=== PATIENT | female | born 1945 | race Caucasian/White ===

== ENCOUNTER 2017-02-13 14:18 | Emergency (ER) | payer OTHER ==
[~2017-02-13] VITALS: Ht 167.6 cm; Wt 80.0 kg
[~2017-02-13 14:18] MED LIST: ALBU8I INH; CYCL-36 PO; DICL75 PO; GABA300C3 PO; PEGPOW2 PO; SYMB80AE INH; ULTR50TA PO; ZOCO40TA PO
[2017-02-13 14:20] VITALS: BP 184/83; PULSE 86; RESP 16; TEMP 98.1; O2SAT 98
[2017-02-13] MEDS ORDERED: ASPIRIN 325 MG TAB PO ONE (14:45)
[2017-02-13] MEDS ORDERED: SODIUM CHLORIDE 0.9% FLUSH 10 ML FLUSH IVF PRN (14:45)
[2017-02-13 14:52] VITALS: BP 121/73; PULSE 72; PULSE 75; RESP 16; TEMP 98.5; O2SAT 98
[2017-02-13 14:53] VITALS: BP 129/78; PULSE 73
--- NOTE | 2017-02-13 15:06 | PD ---
HPI Chief Complaint: Chest Pain Time Seen by Provider: 14:59 Travel History International Travel<30 days: No Contact w/Intl Traveler<30days: No Traveled to known affect area: No History of Present Illness HPI 71-year-old female that presents to the ED for evaluation of chest pressure and shortness of breath that she's had for some time. Per patient she has a pressure on her chest that comes and goes and she's had this from was a couple months now. Per patient she's been following with Dr. Gipson are for evaluation of this and has had a treadmill as well as a nuclear stress test that apparently have been negative. Patient also probably having a Holter monitor. Per patient the pain is not constant but comes and goes. Become severe and radiates to the back. She states that she has a history of gastroparesis as she wasn't sure if this is related to that. She's been taking a lot of Gas-X with some relief but he continues to come back. He denies any nausea or vomiting. No abdominal pain. No bowel movement issues. No urinary issues. Allergy to amoxicillin, codeine, contrast media, Ultram. She states that she tried to call Dr. Gipson's office today to see if she could be seen but she was not successful so she came here instead. Per patient the pain is 6 out of 10. It is more like a pressure than an actual pain. PFSH Past Medical History Arthritis: Yes Asthma: Yes Autoimmune Disease: No Blood Disorders: No Cancer: No Cardiovascular Problems: No High Cholesterol: Yes Chest Pain: Yes Diabetes: No Diminished Hearing: No Endocrine: No Gastrointestinal Disorders: Yes (IBS) GERD: Yes Genitourinary: No Headaches: Yes Hepatitis: No Hiatal Hernia: No Immune Disorder: No Implanted Vascular Access Dvce: Yes Kidney Stones: Yes Musculoskeletal: Yes (arthritis in neck and back , DDD) Neurologic: No (tingling in fingers in l hand) Psychiatric: No Reproductive: No Respiratory: Yes (bronchitis) Pancreatitis: Yes Pneumonia: Yes Thyroid Disease: No PNEUMOCCOCAL Vaccine (Year): 2006 ?: Not Menopausal: Yes : 4 Para: 3 Miscarriage: 1 Past Surgical History Abdominal Surgery: Yes (HYSTERECTOMY, gallbladder) AICD: No Appendectomy: Yes Body Medical Devices: rods to lower back Cholecystectomy: Yes Gynecologic Surgery: Yes Hysterectomy: Yes Joint Replacement: Yes (Left knee replaced) Neurologic Surgery: Yes (LUMBAR LAMINECTOMY 1989; LAMINECTOMY WITH FUSION 2004) Pacemaker: No Tonsillectomy: Yes Other Surgery: Yes (RIGHT SHOULDER SX, BACK L5, S1, L TOTAL KNEE) Social History Alcohol Use: Yes (OCCASSIONALLY) Tobacco Use: No (QUIT) Substance Use: No Allergies-Medications (Allergen,Severity, Reaction): Coded Allergies: Amoxicillin (Verified Allergy, Severe, Swelling, 02/13/17) Codeine (Verified Allergy, Severe, VERY SICK, 02/13/17) Contrast Media (Verified Allergy, Severe, Hives, 02/13/17) Ultracet (Verified Adverse Reaction, Severe, N/V, 02/13/17) Ultram (Verified Adverse Reaction, Severe, N/V, 02/13/17) Reported Meds & Prescriptions Reported Meds & Active Scripts Active Reported Simvastatin 40 Mg Tab 40 Mg PO HS Miralax Powder (Polyethylene Glycol 3350 Powder) 17 Gm Powd 17 Gm PO DAILY Mix and dissolve one measuring cap-ful (17 grams) in water or juice. Gabapentin 300 Mg Cap 300 Mg PO TID Diclofenac Sodium DR (Diclofenac Sodium) 75 Mg Tabdr 75 Mg PO DAILY Flexeril (Cyclobenzaprine HCl) 10 Mg Tab 10 Mg PO TID Symbicort Inh (Budesonide/Formoterol Fumarate) 80-4.5 Mcg/Act Aero 1 Puff INH DAILY Ventolin Hfa 18 GM Inh (Albuterol Sulfate) 90 Mcg/Act Aer 2 Puff INH TID Lisinopril 10 Mg Tab 10 Mg PO DAILY Review of Systems Except as stated in HPI: all other systems reviewed are Neg Physical Exam Narrative GENERAL: SKIN: Warm and dry. HEAD: Atraumatic. Normocephalic. EYES: Pupils equal and round. No scleral icterus. No injection or drainage. ENT: No nasal bleeding or discharge. Mucous membranes pink and moist. Tongue is midline. No uvula deviation. NECK: Trachea midline. No JVD. CARDIOVASCULAR: Regular rate and rhythm. No murmurs, S3, S4. Chest pain is not reproducible with touch. RESPIRATORY: No accessory muscle use. Clear to auscultation. Breath sounds equal bilaterally. GASTROINTESTINAL: Abdomen soft, non-tender, nondistended. Hepatic and splenic margins not palpable. MUSCULOSKELETAL: Extremities without clubbing, cyanosis, or edema. No obvious deformities. Full range of motion of the upper and lower extremities bilaterally. 2+ pulses bilaterally. NEUROLOGICAL: Awake and alert. No obvious cranial nerve deficits. Motor grossly within normal limits. Five out of 5 muscle strength in the arms and legs. Normal speech. PSYCHIATRIC: Appropriate mood and affect; insight and judgment normal. Data Data Last Documented VS Vital Signs Date Time Temp Pulse Resp B/P Pulse Ox O2 Delivery O2 Flow Rate FiO2 02/13/17 16:58 62 21 134/76 99 Nasal Cannula 2 02/13/17 14:52 98.5 Orders Electrocardiogram (02/13/17 14:32) Basic Metabolic Panel (Bmp) (02/13/17 14:32) Ckmb (Isoenzyme) Profile (02/13/17 14:32) Complete Blood Count With Diff (02/13/17 14:32) Magnesium (Mg) (02/13/17 14:32) Prothrombin Time / Inr (Pt) (02/13/17 14:32) Act Partial Throm Time (Ptt) (02/13/17 14:32) Troponin I (02/13/17 14:32) Chest, Single Ap (02/13/17 14:32) Ecg Monitoring (02/13/17 14:32) Bilateral Bp Monitoring (02/13/17 14:32) Iv Access Insert/Monitor (02/13/17 14:32) Oximetry (02/13/17 14:32) Oxygen Administration (02/13/17 14:32) Aspirin (Aspirin) (02/13/17 14:45) Sodium Chloride 0.9% Flush (Ns Flush) (02/13/17 14:45) D-Dimer (02/13/17 14:43) Hepatic Functional Panel (02/13/17 14:55) Lipase (02/13/17 14:55) Troponin I (02/13/17 16:41) Labs Laboratory Tests Test 02/13/17 02/13/17 14:55 18:00 White Blood Count 8.6 TH/MM3 Red Blood Count 4.39 MIL/MM3 Hemoglobin 12.5 GM/DL Hematocrit 35.7 % Mean Corpuscular Volume 81.2 FL Mean Corpuscular Hemoglobin 28.4 PG Mean Corpuscular Hemoglobin 35.0 % Concent Red Cell Distribution Width 13.2 % Platelet Count 241 TH/MM3 Mean Platelet Volume 8.9 FL Neutrophils (%) (Auto) 77.4 % Lymphocytes (%) (Auto) 13.6 % Monocytes (%) (Auto) 7.1 % Eosinophils (%) (Auto) 1.5 % Basophils (%) (Auto) 0.4 % Neutrophils # (Auto) 6.6 TH/MM3 Lymphocytes # (Auto) 1.2 TH/MM3 Monocytes # (Auto) 0.6 TH/MM3 Eosinophils # (Auto) 0.1 TH/MM3 Basophils # (Auto) 0.0 TH/MM3 CBC Comment DIFF FINAL Differential Comment Prothrombin Time 10.6 SEC Prothromb Time International 1.0 RATIO Ratio Activated Partial 24.0 SEC Thromboplast Time D-Dimer Quantitative (PE/DVT) 0.26 MG/L FEU Sodium Level 138 MEQ/L Potassium Level 4.1 MEQ/L Chloride Level 105 MEQ/L Carbon Dioxide Level 25.5 MEQ/L Anion Gap 8 MEQ/L Blood Urea Nitrogen 17 MG/DL Creatinine 0.80 MG/DL Estimat Glomerular Filtration 71 ML/MIN Rate Random Glucose 98 MG/DL Calcium Level 8.9 MG/DL Magnesium Level 2.2 MG/DL Total Bilirubin 0.4 MG/DL Direct Bilirubin 0.1 MG/DL Indirect Bilirubin 0.3 MG/DL Aspartate Amino Transf 14 U/L (AST/SGOT) Alanine Aminotransferase 20 U/L (ALT/SGPT) Alkaline Phosphatase 67 U/L Total Creatine Kinase 70 U/L Troponin I LESS THAN 0.02 LESS THAN 0.02 NG/ML NG/ML Total Protein 7.1 GM/DL Albumin 3.7 GM/DL Lipase 146 U/L MDM Medical Decision Making Medical Screen Exam Complete: Yes Emergency Medical Condition: Yes Medical Record Reviewed: Yes Interpretation(s) CBC & BMP Diagram 02/13/17 14:55 EKG shows sinus rhythm with no sign of acute ischemia or arrhythmia. Read by me and attending. Troponin is negative. CK-MB negative. Coags within normal limits with d-dimer within normal limits. Chest x-ray negative for acute disease. EKG shows sinus rhythm with no sign of acute ischemia or arrhythmia rhythm me and attending. Differential Diagnosis Chest pain versus ACS versus noncardiac chest pain versus atypical chest pain versus pneumonia versus PE versus gastroparesis Narrative Course 71-year-old female that presents to the ED for evaluation of chest pain. Patient was properly examined and was found to have signs and symptoms consistent with appears to be chest discomfort. Unclear etiology. Patient follows with Dr. Gipson and per patient she's had a treadmill stress test that was somewhat abnormal so they did an inferior stress this and per patient need seems like he was negative as nothing is has been done. At this time I recommend some labs and imaging. We will speak with Dr. Gipson once I get results. Labs and imaging were essentially unremarkable. Case was discussed with Dr. Gipson who recommends doing second troponin acted as negative patient can follow-up with his office tomorrow. Second troponin was done and this was negative. Patient was reassured. From history and physical this appears to be a typical chest pain. I question whether this is gastroparesis. I will treat patient with Reglan. Told to follow with PCP. Follow with Dr. Gipson tomorrow. My attending See ED worsening symptoms. All questions were answered to the best of my ability. Case was discussed with my attending who agrees with plan. Diagnosis Primary Impression: Atypical chest pain Patient Instructions: General Instructions Additional Instructions: Take medication as prescribed. Follow with Dr gipson tomorrow. See ED if worsening symptoms. Med/Other Pt SpecificInfo: Prescription(s) given Disposition: 01 DISCHARGE HOME Condition: Stable Odell Farooq Feb 13, 2017 15:06
[2017-02-13] MEDS ORDERED: LISI10TA3 PO ×2 (15:13→17:52)
[2017-02-13 15:27] LABS: AUTOMATED NEUTROPHIL # 6.6 TH/MM3 (1.8-7.7); BASOPHIL % 0.4 % (0.0-2.0); EOSINOPHIL # 0.1 TH/MM3 (0-0.4); EOSINOPHIL % 1.5 % (0.0-4.0); HEMATOCRIT 35.7 % (35.0-46.0); HEMO FLAGS DIFF FINAL; LYMPH % 13.6 % (9.0-44.0); LYMPHOCYTE # 1.2 TH/MM3 (1.0-4.8); MEAN CELL VOLUME 81.2 FL (80.0-100.0); MEAN CORPUSCULAR HEMOGLOBIN 28.4 PG (27.0-34.0); MONO % 7.1 % (0.0-8.0); NEUT % 77.4 % (16.0-70.0); PLATELET COUNT 241 TH/MM3 (150-450); RED BLOOD COUNT 4.39 MIL/MM3 (4.00-5.30); RED CELL DISTRIBUTION WIDTH 13.2 % (11.6-17.2); WHITE BLOOD COUNT 8.6 TH/MM3 (4.0-11.0)
[2017-02-13 15:43] LABS: ANION GAP 8 MEQ/L (5-15); BICARBONATE 25.5 MEQ/L (21.0-32.0); BLOOD UREA NITROGEN 17 MG/DL (7-18); CHLORIDE 105 MEQ/L (98-107); GLOMERULAR FILTRATION RATE 71 ML/MIN (>89); MAGNESIUM 2.2 MG/DL (1.5-2.5); POTASSIUM 4.1 MEQ/L (3.5-5.1); SODIUM (NA) 138 MEQ/L (136-145)
[2017-02-13 15:47] LABS: PROTHROMBIN TIME - PATIENT 10.6 SEC (9.8-11.6)
[2017-02-13 15:53] LABS: CREATINE KINASE 70 U/L (26-192)
[2017-02-13 16:00] VITALS: BP 131/77; PULSE 64; RESP 15; O2SAT 99
[2017-02-13 16:05] LABS: ALT (GPT) 20 U/L (10-53); AST (GOT) 14 U/L (15-37)
[2017-02-13 16:06] LABS: ALKALINE PHOSPHATASE 67 U/L (45-117); INDIRECT BILIRUBIN 0.3 MG/DL (0.0-0.8); TOTAL BILIRUBIN ADULT 0.4 MG/DL (0.2-1.0)
--- NOTE | 2017-02-13 16:20 | RADRPT ---
EXAM DATE/TIME: 02/13/2017 14:48 [facility] COMPARISON: No previous studies available for comparison. INDICATIONS : Chest pressure, short of breath, back pain. MEDICAL HISTORY : None. SURGICAL HISTORY : None. ENCOUNTER: Initial ACUITY: 1 week PAIN SCORE: 6/10 LOCATION: Bilateral chest FINDINGS: A single view of the chest demonstrates the lungs to be symmetrically aerated without evidence of mas s, infiltrate or effusion. The cardiomediastinal contours are unremarkable. Osseous structures are intact. Anterior plate in the lower cervical spine. CONCLUSION: The lungs are clear. Andrew Ramirez MD on February 13, 2017 at 16:18 Board Certified Radiologist. This report was verified electronically.
[2017-02-13 16:58] VITALS: BP 134/76; PULSE 62; RESP 21; O2SAT 99
[2017-02-13] MEDS ORDERED: DICL75TA PO (17:56)
[2017-02-13] MEDS ORDERED: SYMB80AE INH (17:56)
[2017-02-13] MEDS ORDERED: SIMV40TA PO (17:56)
[2017-02-13] MEDS ORDERED: VENTAER INH (17:56)
[2017-02-13] MEDS ORDERED: CYCL1TAB29 PO (17:56)
[2017-02-13] MEDS ORDERED: MIRA33504 PO (17:56)
[2017-02-13] MEDS ORDERED: GABA300C5 PO (17:56)
[2017-02-13] MEDS ORDERED: REGL5TAB PO (18:44)
--- NOTE | 2017-02-14 13:46 | EKG ---
Date Performed: 02/13/2017 Time Performed: 14:43:30 PTAGE: 71 years EKG: Sinus rhythm WITH OCCASIONAL VENTRICULAR PREMATURE COMPLEXES BORDERLINE ECG Compared to prior tracing no signific ant change PREVIOUS TRACING : 10/31/2013 13.38 DOCTOR: Osmin Randle Interpretating Date/Time 02/14/2017 13:40:14
== END 2017-02-13 19:00 | disposition home or self-care (01) ==
LOC: NEPC 14:18
DX: E78.00 Pure hypercholesterolemia, unspecified (principal); K58.9 Irritable bowel syndrome, unspecified; R07.89 Other chest pain
CPT/HCPCS: 71010; 80048; 80076; 82550; 83690; 83735; 84484; 85025; 85379; 85610; 85730; 93005

== ENCOUNTER 2017-02-18 10:22 | Day surgery (SDC) | payer OTHER ==
[~2017-02-18] VITALS: Ht 167.6 cm; Wt 80.4 kg
[~2017-02-18 10:22] MED LIST changes: -ALBU8I INH; -CYCL-36 PO; +CYCL1TAB29 PO; -DICL75 PO; +DICL75TA PO; -GABA300C3 PO; +GABA300C5 PO; +LISI10TA3 PO; +MIRA33504 PO; -PEGPOW2 PO; +REGL5TAB PO; +SIMV40TA PO; -ULTR50TA PO; +VENTAER INH; -ZOCO40TA PO
[2017-02-18] MEDS ORDERED: NS 1000P @30 MLS/HR (KVO) IV SCH (10:45)
[2017-02-18 10:57] VITALS: BP 149/78; PULSE 74; RESP 18; TEMP 97.8; O2SAT 99
[2017-02-18] MEDS ORDERED: ZYRT10CA PO (11:05)
[2017-02-18] MEDS ORDERED: FOSA70TA PO (11:05)
[2017-02-18] MEDS ORDERED: ASPI81CH CHEW (11:05)
[2017-02-18] MEDS ORDERED: VITA400C2 PO (11:05)
[2017-02-18] MEDS ORDERED: VITA100036 PO (11:05)
[2017-02-18 11:08] LABS: AUTOMATED NEUTROPHIL # 7.6 TH/MM3 (1.8-7.7); BASOPHIL % 0.1 % (0.0-2.0); HEMATOCRIT 38.4 % (35.0-46.0); HEMO FLAGS DIFF FINAL; LYMPH % 6.3 % (9.0-44.0); LYMPHOCYTE # 0.5 TH/MM3 (1.0-4.8); MEAN CELL VOLUME 81.4 FL (80.0-100.0); MEAN CORPUSCULAR HEMOGLOBIN 28.1 PG (27.0-34.0); MEAN CORPUSCULAR HGB CONC 34.6 % (32.0-36.0); MONO % 2.2 % (0.0-8.0); NEUT % 91.4 % (16.0-70.0); PLATELET COUNT 267 TH/MM3 (150-450); RED BLOOD COUNT 4.72 MIL/MM3 (4.00-5.30); WHITE BLOOD COUNT 8.3 TH/MM3 (4.0-11.0)
[2017-02-18 11:18] LABS: BICARBONATE 26.8 MEQ/L (21.0-32.0); POTASSIUM 3.9 MEQ/L (3.5-5.1)
[2017-02-18 11:19] LABS: APTT (PATIENT) 23.1 SEC (24.3-30.1); PROTHROMBIN TIME - PATIENT 10.7 SEC (9.8-11.6)
[2017-02-18] MEDS ORDERED: HEPARIN-NS/PF INJ 500 ML ONE (12:28)
[2017-02-18] MEDS ORDERED: ONDANSETRON HCL 4 MG/2 ML VIAL ONE (12:29)
[2017-02-18] MEDS ORDERED: MIDAZOLAM HCL 2 MG/2 ML VIAL ONE ×2 (12:29→13:15)
[2017-02-18] MEDS ORDERED: HYDROCORTISONE SOD SUCCINATE 100 MG VIAL ONE (12:53)
[2017-02-18] MEDS ORDERED: diphenhydrAMINE HCL 50 MG/ML VIAL ONE (12:53)
[2017-02-18] MEDS ORDERED: SODIUM CHLOR 0.9% 1000 ML INJ 1,000 ML IV SCH (13:52)
[2017-02-18] MEDS ORDERED: IOHEXOL 350 MG/ML 50 ML BTL (for Cath Lab) OTHER ONE (13:54)
[2017-02-18] MEDS ORDERED: MISC INFORMATION XX ONE (14:00)
--- NOTE | 2017-02-19 05:34 | MA ---
cc: SHAHRZAD GIPSON M.D., LOUIS M. MD GAINES, CAROL M. DO DATE: 02/18/2017 PROCEDURE Cardiac catheterization. INDICATION FOR CATHETERIZATION Continued marked shortness of breath class IV with minimal exertion. Negative D-dimer. Negative stress test and nuclear stress test. Continued discomfort. History of gastroparesis. CONSENT A full informed consent was obtained prior to the procedure. The risks of , bleeding, myocardial infarction, perforation, aspiration, foreseen and unforeseen complications were reviewed. The patient fully appeared to understand the risks. DETAILS OF PROCEDURE The patient was draped and prepped. The right femoral artery was entered using a micropuncture technique. The right femoral artery was entered and the right femoral vein was entered. In the right femoral artery a 4-[place] sheath was placed and in the right femoral vein a 7-[place] sheath. A full left heart catheterization was carried out including left main and coronaries including the right coronary. Following this a pigtail catheter was placed in the left ventricle and an GONSALEZ ventriculogram performed. Following this the vein was stuck using a micropuncture kit and a full right heart catheterization was performed. FINDINGS HEMODYNAMICS The LV pressure was 121 with a left ventricular end-diastolic pressure to 17. The aortic pressure was 110. There was no evidence of a significant gradient on pullback across the LV outflow tract or aortic valve. The pulmonary capillary wedge pressure was 13/14 with a mean of 10. The mean pulmonary artery pressure was 29/19. The RV pressure was 28 with a right ventricular end-diastolic pressure of 10. The right atrial pressure was 6. LEFT VENTRICULOGRAM The overall left ventricular ejection fraction was estimated at 60%. There was no evidence of significant mitral regurgitation or mural thrombus. CORONARIES The left main is free of significant disease. The left anterior descending artery is a large vessel. There is a large first diagonal branch which is free of significant disease. In the mid-LAD just after a large septal quality head is a 60% smooth stenosis. The circumflex vessel is a medium-sized vessel with a small first obtuse marginal branch. The right coronary artery is a large dominant vessel with a large posterior descending artery and a large posterolateral branch. CONCLUSIONS 1. Normal LV function. 2. Single-vessel coronary artery disease involving the left anterior descending artery with a 60% LAD lesion. 3. No evidence of significantly elevated right side pressures. PLAN Continued medical management with risk factor reduction. No obvious cause of shortness of breath. Shahrzad Gipson MD, FRCP,[facility] /1:32 PM /5:15 AM
--- NOTE | 2017-02-19 12:04 | EKG ---
Date Performed: 02/18/2017 Time Performed: 10:59:54 PTAGE: 71 years EKG: --- Warning: Data quality may affect interpretation --- Sinus rhythm . Lead(s) unsuitable for analysis: V5 V6 Poor R wave progression - probable normal variant Borderline ECG PREVIOUS TRACING : 02/13/2017 14.43 DOCTOR: Kareem Langford Interpretating Date/Time 02/19/2017 11:56:42
== END 2017-02-18 19:10 | disposition home or self-care (01) ==
LOC: HDOC 10:22 → HDIC 10:23 → HDOC 19:10
PROVIDERS: ATTEND Internal Medicine Cardiovascular Disease
DX: I25.10 Atherosclerotic heart disease of native coronary artery without angina pectoris (principal); I10 Essential (primary) hypertension; E78.5 Hyperlipidemia, unspecified; J45.909 Unspecified asthma, uncomplicated
CPT/HCPCS: 80048; 82810; 85025; 85610; 85730; 93005; 93460; C1769; C1893; J1200; J1644; J1720; J2250; J2405; J7030; Q9967